=== PATIENT | female | born 1945 | race Caucasian/White ===

== ENCOUNTER 2016-11-22 10:04 | Emergency (ER) | payer OTHER ==
[~2016-11-22] VITALS: Ht 157.5 cm; Wt 41.5 kg
[2016-11-22 10:13] VITALS: TEMP 36.5; Ht 157.5 cm; Wt 41.5 kg
[2016-11-22] MEDS ORDERED: SODIUM CHLORIDE 0.9% 1000ML 1,000 ML IV STA (10:24)
[2016-11-22 10:44] LABS: BASO % 0.3 %; BASO ABS # 0.03 K/uL (0-0.2); COMPLETE YES; EOS % 0.3 %; HEMATOCRIT 42.7 % (37-47); IG% 0.1 %; LYMPH ABS # 1.41 K/uL (1.2-3.4); MEAN CELL VOLUME 93.6 fL (80-100); MEAN CORPUSCULAR HEMOGLOBIN 30.9 pg (25-34); MEAN PLATELET VOLUME 10.2 fL (7.4-10.4); MONO % 6.1 %; NEUT % 79.2 %; PLATELET COUNT 258 K/uL (130-400); RED BLOOD COUNT 4.56 M/uL (4.2-5.4); WHITE BLOOD COUNT 10.09 K/uL (4.8-10.8)
[2016-11-22] MEDS ORDERED: MULT-1092 PO (10:49)
[2016-11-22 10:55] LABS: URINE APPEARANCE CLOUDY (CLEAR); URINE BILIRUBIN NEG (NEG); URINE COLOR DK YELLOW; URINE NITRITE POS (NEG); URINE PH 5.5 (4.5-7.5); URINE SPECIFIC GRAVITY 1.021 (1.000-1.030); UROBILINOGEN NEG (NEG); ZZUR CULT IF INDIC CLEAN CATCH YES
[2016-11-22] MEDS ORDERED: KETOROLAC TROMETHAMINE 30 MG/ML VIAL IV STA (10:56)
[2016-11-22 11:02] LABS: MANUAL MICROSCOPIC REQUIRED? NO; REVIEW REQ? NO
[2016-11-22 11:02] LABS: ALT/SGPT 39 U/L (12-78); AST/SGOT 26 U/L (15-37); BLOOD UREA NITROGEN 30 mg/dl (7-18); BUN/CREATININE RATIO 33.6 (10-20); CALCIUM 9.2 mg/dl (8.5-10.1); CARBON DIOXIDE 31 mmol/L (21-32); CHLORIDE 106 mmol/L (98-107); CREATININE 0.88 mg/dl (0.60-1.20); GLUCOSE 137 mg/dl (70-99); POTASSIUM 3.9 mmol/L (3.5-5.1); SODIUM 142 mmol/L (136-145)
[2016-11-22 11:05] LABS: ALKALINE PHOSPHATASE 63 U/L (45-117)
--- NOTE | 2016-11-22 11:34 | DIAGNOSTIC IMAGING REPORT ---
CT SCAN OF THE ABDOMEN AND PELVIS WITHOUT CONTRAST CLINICAL HISTORY: Flank pain COMPARISON STUDY: No previous studies for comparison. TECHNIQUE: CT scan of the abdomen and pelvis was performed from the lung bases to the proximal femurs. Images are reviewed in the axial, sagittal, and coronal planes. IV contrast was not administered for this examination. CT DOSE: 240.15 mGy.cm FINDINGS: Lower chest: There is a small pericardial effusion. There are minor atelectatic changes the lung bases. Liver: There are hypodensities within the right lobe of the liver measuring up to 1 cm in diameter. These statistically represent cysts. Gallbladder: Unremarkable. Spleen: Normal in size and attenuation. Pancreas: Unremarkable. Adrenal glands: Unremarkable. Kidneys: There are multiple bilateral intrarenal calculi measuring up to 3 mm in diameter. No ureteral or bladder calculi are visualized. There is minor left-sided perinephric stranding. There is minimal fullness of the left renal pelvis but no significant hydronephrosis. Bowel: Evaluation of the bowel is difficult given the lack of intravenous and oral contrast and the paucity of intra-abdominal fat. There is mild fecal retention. There are no transition zones indicate bowel obstruction. There is no evidence of acute diverticulitis. The appendix is not visualized with certainty. Borderline bowel wall thickening involving the proximal descending colon, is likely secondary to a nondistended segment. If there is clinical concern over the presence of bowel pathology, the study could be repeated following intravenous and oral contrast administration. Peritoneum: There is no intraperitoneal free air or abdominal ascites. Vasculature: The abdominal aorta is normal in course and caliber. Adenopathy: None. Pelvic viscera: The patient appears be status post a prior hysterectomy Skeletal structures: No destructive osseous lesions are seen. IMPRESSION: 1. Limited study given the lack of intravenous and oral contrast and the paucity of intra-abdominal fat 2. No evidence of bowel obstruction. No evidence of free air 3. Bilateral nephrolithiasis. Minor left-sided perinephric stranding but no evidence of significant hydronephrosis 4. No ureteral or bladder calculi identified Electronically signed by: Bharath Badillo M.D. 11/22/2016 11:33 AM Dictated Date/Time: 11/22/2016 11:15 AM
[2016-11-22] MEDS ORDERED: FENTANYL CITRATE INJ 50 MCG/1 ML 2 ML VIAL IV STA (12:40)
[2016-11-22] MEDS ORDERED: CEFTRIAXONE SOD INJ 1 GM ADDVIAL IV STA (12:41)
[2016-11-22] MEDS ORDERED: ONDA4TAB10 SL (12:46)
[2016-11-22] MEDS ORDERED: CEPH500C PO (12:46)
[2016-11-22] MEDS ORDERED: PHENAZOPYRIDINE HCL 200 MG TAB PO STA (12:47)
[2016-11-22] MEDS ORDERED: ONDANSETRON INJ 2 MG/ML 2 ML VIAL IV STA (12:47)
--- NOTE | 2016-11-22 12:47 | EMERGENCY ROOM VISIT NOTE ---
History Report prepared by Ja: Ad Khan Under the Supervision of: Dr. Twin Escalona D.O. First contact with patient: 10:24 Chief Complaint: FLANK PAIN Stated Complaint: INTENSE PAIN LEFT SIDE/BACK History of Present Illness The patient is a 71 year old female who presents to the Emergency Room with complaints of left sided flank pain that began two days ago. She rates her pain severe. A couple of days ago, she states that her pain was in her abdomen. She is not having abdomen pain at this time. She states that nothing makes her pain better or worse. She is experiencing chills and diaphoresis. She denies any fevers as well. She denies any past medical history relating to her kidneys. Source of History: patient Onset: 2 days ago Position: back (left flank) Symptom Intensity: severe Quality: sharp Timing: constant Modifying Factors (Worsening): other (N/A) Modifying Factors (Relieving): other (N/A) Associated Symptoms: + chills, + diaphoresis, No fevers Review of Systems See HPI for pertinent positives & negatives. A total of 10 systems reviewed and were otherwise negative. Past Medical & Surgical Medical Problems: (1) No Known Active Medical Problems Family History Omitted secondary to age. Social History Smoking Status: Never Smoker Smokeless Tobacco Use: No Drug Use: none Marital Status: Housing Status: lives with significant other Occupation Status: retired Current/Historical Medications Scheduled Cephalexin Monohydrate (Keflex), 500 MG PO QID Multiple Vitamins W/ Minerals (Centrum Silver 50+Women), 1 TAB PO DAILY Ondasetron Odt (Zofran Odt), 4 MG SL Q6H Allergies Coded Allergies: Sulfa Antibiotics (Unverified Allergy, Severe, hives, 11/22/16) Physical Exam Vital Signs Date Time Temp Pulse Resp B/P Pulse Ox O2 Delivery O2 Flow Rate FiO2 11/22/16 12:00 80 18 98/69 98 Room Air 11/22/16 10:13 36.5 54 18 133/71 98 Room Air Physical Exam CONSTITUTIONAL/VITAL SIGNS: Reviewed / noted above. GENERAL: Non-toxic in appearance. INTEGUMENTARY: Warm, dry, and [place]. HEAD: Normocephalic. EYES: without scleral icterus or trauma. ENT/OROPHARYNX: clear and moist. LYMPHADENOPATHY/NECK: Is supple without lymphadenopathy or meningismus. RESPIRATORY: Lungs clear and equal. CARDIOVASCULAR: Regular rate and rhythm. GI/ABDOMEN: Soft and nontender. No organomegaly or pulsatile mass. No rebound or guarding. Normal bowel sounds. EXTREMITIES: Warm and well perfused. BACK: Left CVA tenderness. NEUROLOGICAL: Intact without focal deficits. PSYCHIATRIC: normal affect. MUSCULOSKELETAL: Normally developed with good muscle tone. Medical Decision & Procedures ER Provider Diagnostic Interpretation: Radiology results as stated below per my review and radiologist interpretation: CT SCAN OF THE ABDOMEN AND PELVIS WITHOUT CONTRAST CLINICAL HISTORY: Flank pain COMPARISON STUDY: No previous studies for comparison. TECHNIQUE: CT scan of the abdomen and pelvis was performed from the lung bases to the proximal femurs. Images are reviewed in the axial, sagittal, and coronal planes. IV contrast was not administered for this examination. CT DOSE: 240.15 mGy.cm FINDINGS: Lower chest: There is a small pericardial effusion. There are minor atelectatic changes the lung bases. Liver: There are hypodensities within the right lobe of the liver measuring up to 1 cm in diameter. These statistically represent cysts. Gallbladder: Unremarkable. Spleen: Normal in size and attenuation. Pancreas: Unremarkable. Adrenal glands: Unremarkable. Kidneys: There are multiple bilateral intrarenal calculi measuring up to 3 mm in diameter. No ureteral or bladder calculi are visualized. There is minor left-sided perinephric stranding. There is minimal fullness of the left renal pelvis but no significant hydronephrosis. Bowel: Evaluation of the bowel is difficult given the lack of intravenous and oral contrast and the paucity of intra-abdominal fat. There is mild fecal retention. There are no transition zones indicate bowel obstruction. There is no evidence of acute diverticulitis. The appendix is not visualized with certainty. Borderline bowel wall thickening involving the proximal descending colon, is likely secondary to a nondistended segment. If there is clinical concern over the presence of bowel pathology, the study could be repeated following intravenous and oral contrast administration. Peritoneum: There is no intraperitoneal free air or abdominal ascites. Vasculature: The abdominal aorta is normal in course and caliber. Adenopathy: None. Pelvic viscera: The patient appears be status post a prior hysterectomy Skeletal structures: No destructive osseous lesions are seen. IMPRESSION: 1. Limited study given the lack of intravenous and oral contrast and the paucity of intra-abdominal fat 2. No evidence of bowel obstruction. No evidence of free air 3. Bilateral nephrolithiasis. Minor left-sided perinephric stranding but no evidence of significant hydronephrosis 4. No ureteral or bladder calculi identified Electronically signed by: Bharath Badillo M.D. 11/22/2016 11:33 AM Dictated Date/Time: 11/22/2016 11:15 AM Laboratory Results 11/22/16 10:30 Red Blood Count 4.56, Mean Corpuscular Volume 93.6, Mean Corpuscular Hemoglobin 30.9, Mean Corpuscular Hemoglobin Concent 33.0, Mean Platelet Volume 10.2, Neutrophils (%) (Auto) 79.2, Lymphocytes (%) (Auto) 14.0, Monocytes (%) (Auto) 6.1, Eosinophils (%) (Auto) 0.3, Basophils (%) (Auto) 0.3, Neutrophils # (Auto) 7.99, Lymphocytes # (Auto) 1.41, Monocytes # (Auto) 0.62, Eosinophils # (Auto) 0.03, Basophils # (Auto) 0.03 11/22/16 10:30 Test 11/22/16 10:27 11/22/16 10:30 Urine Color DK YELLOW Urine Appearance CLOUDY (CLEAR) Urine pH 5.5 (4.5-7.5) Urine Specific [place] 1.021 (1.000-1.030) Urine Protein 1+ (NEG) Urine Glucose (UA) NEG (NEG) Urine Ketones 1+ (NEG) Urine Occult Blood 2+ (NEG) Urine Nitrite POS (NEG) Urine Bilirubin NEG (NEG) Urine Urobilinogen NEG (NEG) Urine Leukocyte Esterase MODERATE (NEG) Urine WBC (Auto) >30 /hpf (0-5) Urine RBC (Auto) >30 /hpf (0-4) Urine Hyaline Casts (Auto) 10-30 /lpf (0-5) Urine Epithelial Cells (Auto) 5-10 /lpf (0-5) Urine Bacteria (Auto) 1+ (NEG) White Blood Count 10.09 K/uL (4.8-10.8) Red Blood Count 4.56 M/uL (4.2-5.4) Hemoglobin 14.1 g/dL (12.0-16.0) Hematocrit 42.7 % (37-47) Mean Corpuscular Volume 93.6 fL (80-100) Mean Corpuscular Hemoglobin 30.9 pg (25-34) Mean Corpuscular Hemoglobin Concent 33.0 g/dl (32-36) Platelet Count 258 K/uL (130-400) Mean Platelet Volume 10.2 fL (7.4-10.4) Neutrophils (%) (Auto) 79.2 % Lymphocytes (%) (Auto) 14.0 % Monocytes (%) (Auto) 6.1 % Eosinophils (%) (Auto) 0.3 % Basophils (%) (Auto) 0.3 % Neutrophils # (Auto) 7.99 K/uL (1.4-6.5) Lymphocytes # (Auto) 1.41 K/uL (1.2-3.4) Monocytes # (Auto) 0.62 K/uL (0.11-0.59) Eosinophils # (Auto) 0.03 K/uL (0-0.5) Basophils # (Auto) 0.03 K/uL (0-0.2) RDW Standard Deviation 43.6 fL (36.4-46.3) RDW Coefficient of Variation 12.6 % (11.5-14.5) Immature Granulocyte % (Auto) 0.1 % Immature Granulocyte # (Auto) 0.01 K/uL (0.00-0.02) Anion Gap 5.0 mmol/L (3-11) Est Creatinine Clear Calc Drug Dose 37.9 ml/min Estimated GFR () 76.1 Estimated GFR (Non- 65.6 BUN/Creatinine Ratio 33.6 (10-20) Calcium Level 9.2 mg/dl (8.5-10.1) Total Bilirubin 0.4 mg/dl (0.2-1) Direct Bilirubin < 0.1 mg/dl (0-0.2) Aspartate Amino Transf (AST/SGOT) 26 U/L (15-37) Alanine Aminotransferase (ALT/SGPT) 39 U/L (12-78) Alkaline Phosphatase 63 U/L (45-117) Total Protein 6.9 gm/dl (6.4-8.2) Albumin 4.0 gm/dl (3.4-5.0) Lipase 93 U/L (73-393) Laboratory results as stated above per my review. Medications Administered Medications (Trade) Dose Ordered Sig/Mala Route Start Time Stop Time Status Last Admin Dose Admin Sodium Chloride (Nss 1000ml) 1,000 ml @ 500 mls/hr Q2H STAT IV 11/22/16 10:24 11/22/16 12:23 DC 11/22/16 10:24 500 MLS/HR Ketorolac Tromethamine (Toradol Inj) 15 mg NOW STAT IV 11/22/16 10:56 11/22/16 10:57 DC 11/22/16 10:56 15 MG Ceftriaxone Sodium (Rocephin Inj) 1 gm NOW STAT IV 11/22/16 12:41 11/22/16 12:42 DC 11/22/16 12:50 1 GM Phenazopyridine HCl (Pyridium Tab) 200 mg NOW STAT PO 11/22/16 12:47 11/22/16 12:48 DC 11/22/16 12:56 200 MG ED Course 1024: Previous medical records were reviewed. The patient was evaluated in room B11. A complete history and physical examination was performed. Ordered Sodium Chloride 1000 ml @ 500 mls/hr IV. 1056: Ordered Toradol Inj 15 mg IV 1240: Ordered Fentanyl Inj 50 mcg IV 1241: Ordered Rocephin Inj 1 gm IV 1247: Ordered Zofran Inj 4 mg IV, Pyridium Tab 200 mg PO 1255: On reevaluation, the patient is resting. I discussed the results and findings with the patient. She verbalized agreement of the treatment plan. She was discharged home. Medical Decision Differential considered: pancreatitis, hepatitis, or acute cholecystitis, AAA, UTI, pyelonephritis, kidney stones, appendicitis, diverticulitis, shingles, bowel obstruction mesenteric ischemia, intussusception,hernia, ovarian torsion, ruptured ovarian cyst. This is a 71-year-old female who presents to the ED with a chief complaint of left-sided flank pain that started a couple days ago and her abdomen. She reports some nausea and subjective fevers and chills. Her vital signs are normal. She is afebrile. A CT scan reveals some mild left-sided perinephric stranding. His CBC is normal. Complete metabolic panel was normal. BUN is 30. Urine does show findings suggesting an infection. The patient was treated with IV fluids and IV Rocephin. She will be discharged on Keflex and Zofran. She was given IV Toradol for pain. She was given IV Zofran and by mouth Pyridium as well.. Impression Primary Impression: UTI (urinary tract infection) Additional Impression: Pyelonephritis Scribe Attestation The scribe's documentation has been prepared under my direction and personally reviewed by me in its entirety. I confirm that the note above accurately reflects all work, treatment, procedures, and medical decision making performed by me. Departure Information Dispostion Home / Self-Care Prescriptions Cephalexin Monohydrate (Keflex) 500 Mg Cap 500 MG PO QID, #28 CAP Prov: Twin Escalona D.O. 11/22/16 Ondasetron Odt (ZOFRAN ODT) 4 Mg Tab 4 MG SL Q6H for Nausea, #15 TAB Prov: Twin Escalona D.O. 11/22/16 Referrals Gail Hernandez D.O. (PCP) Forms HOME CARE DOCUMENTATION FORM, IMPORTANT VISIT INFORMATION Patient Instructions ED UTI Pyelonephritis Female, My [facility] Additional Instructions Keflex as prescribed for urinary tract infection. Zofran: Allow one tablet to dissolve under the tongue every 6 hours as needed for nausea or vomiting. Follow-up with your doctor for further care and evaluation in 1-2 days. Return to the emergency department for worsening or new symptoms or any concerns. You have been examined and treated today on an emergency basis only. This is not a substitute for, or an effort to provide, complete comprehensive medical care. It is impossible to recognize and treat all injuries or illnesses in a single emergency department visit. It is therefore important that you follow up closely with your doctor. Call as soon as possible for an appointment. Problem Qualifiers
[2016-11-22 13:17] VITALS: BP 99/67; PULSE 71; O2SAT 98
== END 2016-11-22 13:19 | disposition home or self-care (01) ==
LOC: C.EDB 10:07
DX: N39.0 Urinary tract infection, site not specified (principal); N12 Tubulo-interstitial nephritis, not specified as acute or chronic